=== PATIENT | male | born 1965 | race Caucasian/White ===

== ENCOUNTER 2017-11-17 14:56 | Inpatient (IN) | payer OTHER ==
[~2017-11-17] VITALS: Ht 172.7 cm; Wt 134.0 kg
[~2017-11-17 14:56] MED LIST: ALLO300T2 PO; ASPI81TA81 PO; ESCI10TA PO; FURO1TAB62 PO; HYDR10TA23 PO; LEVA500T PO; LOTR10CA2 PO
[2017-11-17 15:09] VITALS: BP 184/84; PULSE 83; RESP 15; TEMP 97.7; O2SAT 88
[2017-11-17] MEDS ORDERED: FUROSEMIDE 40 MG/4 ML VIAL IVP ONE (15:45)
--- NOTE | 2017-11-17 15:46 | PD ---
HPI Chief Complaint: Cold / Flu Symptoms Time Seen by Provider: 15:20 Travel History International Travel<30 days: No Contact w/Intl Traveler<30days: No Traveled to known affect area: No History of Present Illness HPI 52-year-old male presents emergency department complaining of shortness of breath, cough, swelling of the bilateral lower extremities that started 3 weeks ago. Patient states that he started having a sore throat developed a cough and began wheezing decided to go to his primary care physician. States that he is received 2 antibiotics and an inhaler from multiple occasions at the urgent care center without significant relief. Patient says shortness of breath increases with laying flat and walking. Patient states that addition his lower extremities have become more swollen than normal. Says he went to urgent care today who recommended he come to the emergency department for evaluation. Patient denies fevers or chills. Denies chest pain. Denies back pain or abdominal pain. Patient states compliance with medications which include Lasix , escitalopram, amlodipine/benazepril. Patient says he has 2-3 alcoholic drinks per day and has done so for years. Denies tobacco use. PFSH Past Medical History Autoimmune Disease: No Cancer: No Cardiovascular Problems: Yes High Cholesterol: No Endocrine: No Gout: Yes Genitourinary: No Hiatal Hernia: Yes (REPAIR 1974) Hypertension: Yes Immune Disorder: No Implanted Vascular Access Dvce: No Musculoskeletal: No Neurologic: No Respiratory: No Thyroid Disease: No Tetanus Vaccination: < 5 Years Past Surgical History Abdominal Surgery: Yes (hernia repair) Body Medical Devices: pacemaker Cardiac Surgery: Yes (pacemaker) Other Surgery: Yes (ankle repair) Social History Alcohol Use: Yes (daily) Tobacco Use: No Substance Use: No Allergies-Medications (Allergen,Severity, Reaction): Coded Allergies: No Known Allergies (Unverified Adverse Reaction, Unknown, 11/17/17) Reported Meds & Prescriptions Reported Meds & Active Scripts Active Lotrel (Amlodipine-Benazepril) 10-40 Mg Cap 1 Cap PO DAILY Reported Ventolin Hfa 18 GM Inh (Albuterol Sulfate) 90 Mcg/Act Aer 2 Puff INH Q4-6H PRN Lasix (Furosemide) 20 Mg Tab 20 Mg PO DAILY Escitalopram (Escitalopram Oxalate) 10 Mg Tab 10 Mg PO DAILY Allopurinol 300 Mg Tab 300 Mg PO DAILY Aspir-81 (Aspirin) 81 Mg Tabdr 1 Tab PO DAILY Review of Systems Except as stated in HPI: all other systems reviewed are Neg Physical Exam Narrative GENERAL: Well-developed, well-nourished in no apparent distress SKIN: Focused skin assessment warm/dry. No rashes or lesions HEAD: Atraumatic. Normocephalic. EYES: Pupils equal and round. No scleral icterus. No injection or drainage. ENT: No nasal bleeding or discharge. Mucous membranes pink and moist. NECK: Trachea midline. No JVD. No lymphadenopathy CARDIOVASCULAR: Regular rate and rhythm. No murmur appreciated. RESPIRATORY: No accessory muscle use. Left lobes with diffuse wheezing, right lobes rales versus rhonchi GASTROINTESTINAL: Abdomen soft, non-tender, nondistended. Protuberant MUSCULOSKELETAL: No obvious deformities. No clubbing. No cyanosis. +2 pitting edema edema bilateral lower extremities, Homans sign negative, no erythema noted NEUROLOGICAL: Awake and alert. No obvious cranial nerve deficits. Motor grossly within normal limits. Normal speech. PSYCHIATRIC: Appropriate mood and affect; insight and judgment normal. Data Data Last Documented VS Vital Signs Date Time Temp Pulse Resp B/P (MAP) Pulse Ox O2 Delivery O2 Flow Rate FiO2 11/17/17 16:00 Nasal Cannula 4.00 11/17/17 15:54 94 11/17/17 15:09 97.7 83 15 184/84 (117) Orders Orders Complete Blood Count With Diff (11/17/17 15:35) Comprehensive Metabolic Panel (11/17/17 15:35) B-Type Natriuretic Peptide (11/17/17 15:35) Act Partial Throm Time (Ptt) (11/17/17 15:35) Prothrombin Time / Inr (Pt) (11/17/17 15:35) Magnesium (Mg) (11/17/17 15:35) Ckmb (Isoenzyme) Profile (11/17/17 15:35) Troponin I (11/17/17 15:35) Urinalysis - C+S If Indicated (11/17/17 15:35) Iv Access Insert/Monitor (11/17/17 15:35) Electrocardiogram (11/17/17 15:35) Ecg Monitoring (11/17/17 15:35) Oximetry (11/17/17 15:35) Oxygen Administration (11/17/17 15:35) Chest, Pa & Lat (11/17/17 15:35) Furosemide Inj (Lasix Inj) (11/17/17 15:45) Albuterol-Ipratropium Neb (Duoneb Neb) (11/17/17 15:45) Admit Order (Ed Use Only) (11/17/17 17:23) Labs Laboratory Tests Test 11/17/17 16:00 11/17/17 16:10 White Blood Count 10.1 TH/MM3 Red Blood Count 3.14 MIL/MM3 Hemoglobin 12.0 GM/DL Hematocrit 35.0 % Mean Corpuscular Volume 111.7 FL Mean Corpuscular Hemoglobin 38.3 PG Mean Corpuscular Hemoglobin Concent 34.3 % Red Cell Distribution Width 15.4 % Platelet Count 151 TH/MM3 Mean Platelet Volume 7.9 FL Neutrophils (%) (Auto) 71.9 % Lymphocytes (%) (Auto) 19.4 % Monocytes (%) (Auto) 6.9 % Eosinophils (%) (Auto) 1.0 % Basophils (%) (Auto) 0.8 % Neutrophils # (Auto) 7.2 TH/MM3 Lymphocytes # (Auto) 2.0 TH/MM3 Monocytes # (Auto) 0.7 TH/MM3 Eosinophils # (Auto) 0.1 TH/MM3 Basophils # (Auto) 0.1 TH/MM3 CBC Comment DIFF FINAL Differential Comment Prothrombin Time 11.6 SEC Prothromb Time International Ratio 1.1 RATIO Activated Partial Thromboplast Time 25.7 SEC Blood Urea Nitrogen 11 MG/DL Creatinine 0.66 MG/DL Random Glucose 136 MG/DL Total Protein 7.2 GM/DL Albumin 3.4 GM/DL Calcium Level 8.4 MG/DL Magnesium Level 1.3 MG/DL Alkaline Phosphatase 159 U/L Aspartate Amino Transf (AST/SGOT) 68 U/L Alanine Aminotransferase (ALT/SGPT) 39 U/L Total Bilirubin 0.5 MG/DL Sodium Level 131 MEQ/L Potassium Level 4.3 MEQ/L Chloride Level 91 MEQ/L Carbon Dioxide Level 35.5 MEQ/L Anion Gap 5 MEQ/L Estimat Glomerular Filtration Rate 126 ML/MIN Total Creatine Kinase 91 U/L Troponin I LESS THAN 0.02 NG/ML B-Type Natriuretic Peptide 160 PG/ML Urine Color YELLOW Urine Turbidity CLEAR Urine pH 8.0 Urine Specific [place] 1.015 Urine Protein NEG mg/dL Urine Glucose (UA) NEG mg/dL Urine Ketones NEG mg/dL Urine Occult Blood NEG Urine Nitrite NEG Urine Bilirubin NEG Urine Urobilinogen LESS THAN 2.0 MG/DL Urine Leukocyte Esterase SMALL Urine RBC LESS THAN 1 /hpf Urine WBC LESS THAN 1 /hpf Urine Bacteria RARE /hpf Microscopic Urinalysis Comment CULT NOT INDICATED MDM Medical Decision Making Medical Screen Exam Complete: Yes Emergency Medical Condition: Yes Differential Diagnosis Congestive heart failure, pneumonia, upper respiratory infection, bronchitis Narrative Course 52-year-old male with a history of SSS s/p Pacemaker placement presents emergency department complaining of shortness of breath, cough, swelling of the bilateral lower extremities that started 3 weeks ago. Patient states that he started having a sore throat developed a cough and began wheezing decided to go to his primary care physician. States that he is received 2 antibiotics and an inhaler from multiple occasions at the urgent care center without significant relief. Patient says shortness of breath increases with laying flat and walking. Patient states that addition his lower extremities have become more swollen than normal. Says he went to urgent care today who recommended he come to the emergency department for evaluation. Patient denies fevers or chills. Denies chest pain. Denies back pain or abdominal pain. Patient states compliance with medications which include Lasix 20mg QD, escitalopram, amlodipine/benazepril, allopurinol. Patient says he has 2-3 alcoholic drinks per day and has done so for years. Denies tobacco use. Vital signs demonstrate a CO2 88% on room air, 96% 4LPM NC. Duo nebs 2 ordered however, patient will receive one after review of the chest x-ray. Minimal decrease in symptoms. Lasix 40 mg administered IV. CBC demonstrates chronic anemia, BUN/creatinine 11/0.66, calcium 8.4, magnesium 1.3, cardiac enzymes negative. BNP 160 (no previous for comparison). Urinalysis unconvincing of a urinary tract infection. Chest x-ray reveals increased density at the right lung base suspect for moderate elevation of the right hemidiaphragm, atelectasis, and possible effusion. Because of history and physical, lab findings, suspect that patient is in acute congestive heart failure. Patient apparently has no history of congestive heart heart failure. 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 According to EMR, his last cardiac cath was in August 2016 after an echocardiogram in July 2016. EF 55%. Mild LVH. Systolic pressure mild to moderately elevated at PA peak pressure 49 mmHg. His pacemaker was placed in August 2016. Patient will be admitted with congestive heart failure with associated hypoxia. Diagnosis Primary Impression: Congestive heart failure (CHF) Qualified Codes: I50.9 - Heart failure, unspecified Additional Impression: Hypoxia Admitting Information Admitting Physician Requests: Admit Condition: Stable Daily Zayas Nov 17, 2017 15:46
[2017-11-17] MEDS ORDERED: VENTAER INH (15:55)
[2017-11-17] MEDS: RESP: ALBUTEROL 2.5 MG/IPRATROPIUM 0.5 MG NEB (SCH) INH ×2 (16:05→16:10)
--- NOTE | 2017-11-17 16:15 | RADRPT ---
EXAM DATE/TIME: 11/17/2017 15:52 [facility] COMPARISON: CHEST SINGLE AP, August 29, 2016, 17:44. INDICATIONS : Short of breath MEDICAL HISTORY : Hypertension. SURGICAL HISTORY : Pacemaker. ENCOUNTER: Initial ACUITY: 1 day PAIN SCORE: 0/10 LOCATION: chest FINDINGS: A pacer device from a right subclavian transvenous approach is noted. There is moderate elevation of the right hemidiaphragm and basilar atelectasis is seen as well as a suspected effusion on the right. Left lung is clear. There degenerative changes of the spine. CONCLUSION: Increased density at the right lung base suspect for moderate elevation of the right hemidiaphragm, a telectasis and possible effusion. Joaquin Cintron MD on November 17, 2017 at 16:12 Board Certified Radiologist. This report was verified electronically.
[2017-11-17 16:16] LABS: AUTOMATED NEUTROPHIL # 7.2 TH/MM3 (1.8-7.7); BASOPHIL # 0.1 TH/MM3 (0-0.2); BASOPHIL % 0.8 % (0.0-2.0); EOSINOPHIL # 0.1 TH/MM3 (0-0.4); LYMPH % 19.4 % (9.0-44.0); MEAN CELL VOLUME 111.7 FL (80.0-100.0); MEAN CORPUSCULAR HEMOGLOBIN 38.3 PG (27.0-34.0); MEAN CORPUSCULAR HGB CONC 34.3 % (32.0-36.0); MEAN PLATELET VOLUME 7.9 FL (7.0-11.0); MONO % 6.9 % (0.0-8.0); MONOCYTE # 0.7 TH/MM3 (0-0.9); NEUT % 71.9 % (16.0-70.0); PLATELET COUNT 151 TH/MM3 (150-450); RED BLOOD COUNT 3.14 MIL/MM3 (4.50-5.90); RED CELL DISTRIBUTION WIDTH 15.4 % (11.6-17.2); WHITE BLOOD COUNT 10.1 TH/MM3 (4.0-11.0)
[2017-11-17 16:18] LABS: BACTERIA, URINE RARE /hpf; BILIRUBIN, URINE NEG (NEG); BLOOD, URINE NEG (NEG); GLUCOSE,URINE NEG (NEG); KETONE, URINE NEG (NEG); NITRITE,URINE NEG (NEG); URINE COLOR YELLOW (YELLW/STRAW); URINE LEUKOCYTE ESTERASE SMALL (NEG)
[2017-11-17 16:27] LABS: INTERNATIONAL NORMALIZED RATIO 1.1 RATIO; PROTHROMBIN TIME - PATIENT 11.6 SEC (9.8-11.6)
[2017-11-17 16:29] LABS: ALBUMIN 3.4 GM/DL (3.4-5.0); ALT (GPT) 39 U/L (12-78); AST (GOT) 68 U/L (15-37); BICARBONATE 35.5 MEQ/L (21.0-32.0); BLOOD UREA NITROGEN 11 MG/DL (7-18); CALCIUM 8.4 MG/DL (8.5-10.1); CHLORIDE 91 MEQ/L (98-107); CREATININE 0.66 MG/DL (0.60-1.30); GLOMERULAR FILTRATION RATE 126 ML/MIN (>89); GLUCOSE,RANDOM 136 MG/DL (74-106); MAGNESIUM 1.3 MG/DL (1.5-2.5); SODIUM (NA) 131 MEQ/L (136-145)
[2017-11-17 16:33] LABS: ALKALINE PHOSPHATASE 159 U/L (45-117); TOTAL BILIRUBIN ADULT 0.5 MG/DL (0.2-1.0); TOTAL PROTEIN 7.2 GM/DL (6.4-8.2); TROPONIN I LESS THAN 0.02 NG/ML (0.02-0.05)
[2017-11-17] MEDS ORDERED: NALOXONE HCL 0.4 MG/ML AMP IV PUSH PRN (17:30)
[2017-11-17] MEDS ORDERED: ONDANSETRON HCL 4 MG/2 ML VIAL IVP PRN ×2 (17:30→19:00)
[2017-11-17] MEDS ORDERED: SODIUM CHLORIDE 0.9% FLUSH 10 ML FLUSH IV FLUSH PRN ×2 (17:30→19:00)
[2017-11-17] MEDS ORDERED: SENNOSIDES 8.6 MG TAB PO PRN (17:30)
[2017-11-17] MEDS ORDERED: LACTULOSE SYRUP 20 GM/30 ML CUP PO PRN (17:30)
[2017-11-17] MEDS ORDERED: MAGNESIUM HYDROXIDE SUSP 30 ML CUP PO PRN (17:30)
[2017-11-17] MEDS ORDERED: ACETAMINOPHEN 325 MG TAB PO PRN (17:30)
[2017-11-17] MEDS ORDERED: BISACODYL 10 MG SUPP RECTAL PRN (17:30)
[2017-11-17 18:38] VITALS: BP 150/91; PULSE 67; RESP 16; O2SAT 97
[2017-11-17] MEDS: FUROSEMIDE 20 MG/2 ML VIAL IV PUSH SCH (18:38)
--- NOTE | 2017-11-17 18:59 | HHI.HP ---
[facility] Unknown Admission Diagnosis Acute CHF with hypoxia Diagnoses: (1) CHF (congestive heart failure) Diagnosis: Principal (2) Hypoxia Diagnosis: Principal (3) Bronchitis Diagnosis: Principal Travel History International Travel<30 Days: No Contact w/Intl Traveler <30 Da: No Traveled to Known Affected Are: No History of Present Illness This is a 52-year-old male with PMH of HTN, CHF (Echo 07/18/16 w/ EF 55%), Gout and Hyperlipidemia who was referred to the ER by Urgent Care secondary to cough , wheezing and SOB. States he's had non-productive cough, SOB and wheezing for approx 3wks. Was seen at Urgent Care at time of onset and given Z-Jose which he completed. Seen by PCP last week w/ ongoing symptoms and started on Doxycycline 100mg bid in addition to Albuterol MDI. Reports minimal improvement. Significant SOB w/ exertion, also notes worsening lower extremity edema. Follows w/ Dr. Quintanilla as outpatient, no recent changes to medications. On arrival, BP 184/84, HR 83, O2 sat 88% on RA, Afebrile. CBC unremarkable except for elevated neutrophil count. Troponin negative. BNP 160. INR 1.1. CXR with increased density right lung base likely elevation of diaphragm atelectasis and possible effusion. S/p Lasix and DuoNeb in ER. Review of Systems Except as stated in HPI: all other systems reviewed are Neg ROS: 14 point review of systems otherwise negative. Past Family Social History Past Medical History PMH: HTN, CHF (Echo 07/18/16 w/ EF 55%), Gout and Hyperlipidemia Past Surgical History PAST SURGICAL HISTORY: Hernia Repair, Pacemaker, Ankle Surgery Allergies: Coded Allergies: No Known Allergies (Unverified Allergy, Unknown, 11/17/17) Family History PAST FAMILY HISTORY: Reviewed. No h/o DM or CAD Social History PAST SOCIAL HISTORY: Drinks 2-3 beers daily. Negative for tobacco or drugs. Physical Exam Vital Signs Vital Signs Date Time Temp Pulse Resp B/P (MAP) Pulse Ox O2 Delivery O2 Flow Rate FiO2 11/17/17 18:38 67 16 150/91 (110) 97 Nasal Cannula 3.00 11/17/17 16:00 Nasal Cannula 4.00 11/17/17 15:54 94 Nasal Cannula 4.00 11/17/17 15:09 97.7 83 15 184/84 (117) 88 Physical Exam PE: GENERAL: Pleasant middle-aged white male in no acute distress. Some dyspnea with speech HEENT: PERRLA, EOMI. No scleral icterus or conjunctival pallor. No lid lag or facial droop. CARDIOVASCULAR: Regular rate and rhythm. No obvious murmurs to auscultation. No chest tenderness to palpation. RESPIRATORY: No obvious rhonchi. Occasional expiratory wheezing. Clear to auscultation. Breath sounds equal bilaterally. GASTROINTESTINAL: Abdomen soft, non-tender, nondistended. BS normal. MUSCULOSKELETAL: Extremities without clubbing, cyanosis. 2+ edema. No obvious deformities. NEUROLOGICAL: Awake, alert and oriented x4. No focal neurologic deficits. Moving both upper and lower extremities spontaneously. Laboratory Laboratory Tests Test 11/17/17 16:00 11/17/17 16:10 White Blood Count 10.1 Red Blood Count 3.14 Hemoglobin 12.0 Hematocrit 35.0 Mean Corpuscular Volume 111.7 Mean Corpuscular Hemoglobin 38.3 Mean Corpuscular Hemoglobin Concent 34.3 Red Cell Distribution Width 15.4 Platelet Count 151 Mean Platelet Volume 7.9 Neutrophils (%) (Auto) 71.9 Lymphocytes (%) (Auto) 19.4 Monocytes (%) (Auto) 6.9 Eosinophils (%) (Auto) 1.0 Basophils (%) (Auto) 0.8 Neutrophils # (Auto) 7.2 Lymphocytes # (Auto) 2.0 Monocytes # (Auto) 0.7 Eosinophils # (Auto) 0.1 Basophils # (Auto) 0.1 CBC Comment DIFF FINAL Differential Comment Prothrombin Time 11.6 Prothromb Time International Ratio 1.1 Activated Partial Thromboplast Time 25.7 Blood Urea Nitrogen 11 Creatinine 0.66 Random Glucose 136 Total Protein 7.2 Albumin 3.4 Calcium Level 8.4 Magnesium Level 1.3 Alkaline Phosphatase 159 Aspartate Amino Transf (AST/SGOT) 68 Alanine Aminotransferase (ALT/SGPT) 39 Total Bilirubin 0.5 Sodium Level 131 Potassium Level 4.3 Chloride Level 91 Carbon Dioxide Level 35.5 Anion Gap 5 Estimat Glomerular Filtration Rate 126 Total Creatine Kinase 91 Troponin I LESS THAN 0.02 B-Type Natriuretic Peptide 160 Urine Color YELLOW Urine Turbidity CLEAR Urine pH 8.0 Urine Specific [place] 1.015 Urine Protein NEG Urine Glucose (UA) NEG Urine Ketones NEG Urine Occult Blood NEG Urine Nitrite NEG Urine Bilirubin NEG Urine Urobilinogen LESS THAN 2.0 Urine Leukocyte Esterase SMALL Urine RBC LESS THAN 1 Urine WBC LESS THAN 1 Urine Bacteria RARE Microscopic Urinalysis Comment CULT NOT INDICATED Result Diagram: 11/17/17 1600 11/17/17 1600 Caprinroberta VTE Risk Assessment Caprini VTE Risk Assessment: No/Low Risk (score <= 1) Caprini Risk Assessment Model Point Value = 1 Point Value = 2 Point Value = 3 Point Value = 5 Age 41-60 Minor surgery BMI > 25 kg/m2 Swollen legs Varicose veins or History of unexplained or recurrent spontaneous Oral contraceptives or hormone replacement Sepsis (< 1 month) Serious lung disease, including pneumonia (< 1 month) Abnormal pulmonary function Acute myocardial infarction Congestive heart failure (< 1 month) History of inflammatory bowel disease Medical patient at bed rest Age 61-74 Arthroscopic surgery Major open surgery (> 45 min) Laparoscopic surgery (> 45 min) Malignancy Confined to bed (> 72 hours) Immobilizing plaster cast Central venous access Age >= 75 History of VTE Family history of VTE Factor V Leiden Prothrombin [id number] Lupus anticoagulant Anticardiolipin antibodies Elevated serum homocysteine Heparin-induced thrombocytopenia Other congenital or acquired thrombophilia Stroke (< 1 month) Elective arthroplasty Hip, pelvis, or leg fracture Acute spinal cord injury (< 1 month) Prophylaxis Regimen Total Risk Factor Score Risk Level Prophylaxis Regimen 0-1 Low Early ambulation 2 Moderate Order ONE of the following: *Sequential Compression Device (SCD) *Heparin 5000 units SQ BID 3-4 Higher Order ONE of the following medications: *Heparin 5000 units SQ TID *Enoxaparin/Lovenox 40 mg SQ daily (WT < 150 kg, CrCl > 30 mL/min) *Enoxaparin/Lovenox 30 mg SQ daily (WT < 150 kg, CrCl > 10-29 mL/min) *Enoxaparin/Lovenox 30 mg SQ BID (WT < 150 kg, CrCl > 30 mL/min) AND/OR *Sequential Compression Device (SCD) 5 or more Highest Order ONE of the following medications: *Heparin 5000 units SQ TID (Preferred with Epidurals) *Enoxaparin/Lovenox 40 mg SQ daily (WT < 150 kg, CrCl > 30 mL/min) *Enoxaparin/Lovenox 30 mg SQ daily (WT < 150 kg, CrCl > 10-29 mL/min) *Enoxaparin/Lovenox 30 mg SQ BID (WT < 150 kg, CrCl > 30 mL/min) AND *Sequential Compression Device (SCD) Assessment and Plan Problem List: (1) CHF (congestive heart failure) ICD Code: I50.9 - Heart failure, unspecified (2) Hypoxia ICD Code: R09.02 - Hypoxemia (3) Bronchitis ICD Code: J40 - Bronchitis, not specified as acute or chronic Assessment and Plan A/P: 1. CHF: Acute on Chronic. Diastolic. Echo 07/18/16 w/ EF 55%, BNP 160, CXR w / pleural effusion, images reviewed by me, +lower extremity edema. S/p Lasix in ER. Continue w/ Lasix 20mg IV bid, monitor I/O, fluid restriction. Follows w/ Dr. Quintanilla as outpatient, will consult if needed for further recommendations. 2. Hypoxia: O2 sat 88% on RA upon arrival, currently 97% on 3L NC, monitor O2. 3. Bronchitis: +SOB, cough, wheezing, s/p Z-Jose and Doxycycline as outpatient. Afebrile. Solu-Medrol, Symbicort, DuoNeb prn, Mucinex. 4. DVT Prophylaxis: SCD/Teds. 5. Social work for d/c planning as needed. 6. Case discussed w/ ER physician at length, labs/records/imaging reviewed by me. Physician Certification 2 Midnight Certification Type: Admission for Inpatient Services Order for Inpatient Services The services are ordered in accordance with Medicare regulations or non- Medicare payer requirements, as applicable. In the case of services not specified as inpatient-only, they are appropriately provided as inpatient services in accordance with the 2-midnight benchmark. Estimated LOS (days): 2 days is the estimated time the patient will need to remain in the hospital, assuming treatment plan goals are met and no additional complications. Post-Hospital Plan: Not yet determined Diann Lord MD Nov 17, 2017 18:59
[2017-11-17] MEDS ORDERED: ACETAMINOPHEN/HYDROcodone 325 MG/5 MG TAB PO PRN (19:00)
[2017-11-17] MEDS ORDERED: RESP: ALBUTEROL 2.5 MG/IPRATROPIUM 0.5 MG NEB (PRN) NEB (19:00)
[2017-11-17] MEDS ORDERED: MORPHINE SULFATE 2 MG/ML INJ IV PUSH PRN (19:00)
[2017-11-17 20:00] VITALS: BP 187/83; PULSE 68; RESP 22; TEMP 98.1; O2SAT 94
[2017-11-17] MEDS ORDERED: LEVOFLOXACIN 750 MG PREMIX INJ 150 ML IV SCH (20:00)
[2017-11-17] MEDS ORDERED: SODIUM CHLORIDE 0.9% FLUSH 10 ML FLUSH IV FLUSH SCH (21:00)
[2017-11-17 21:19] VITALS: PULSE 77
[2017-11-17] MEDS: guaiFENesin E.R. 600 MG TAB PO SCH (22:35)
[2017-11-17] MEDS: DOCUSATE SODIUM 50 MG/SENNA 8.6 MG TAB PO SCH (22:36)
[2017-11-17] MEDS: SODIUM CHLORIDE 0.9% FLUSH 10 ML FLUSH IV FLUSH SCH (22:37)
[2017-11-18] VITALS (11 sets, daily range): BP systolic 128–190; BP diastolic 58–92; PULSE 61–79; RESP 20–22; TEMP 97.6–98.7; O2SAT 93–96
[2017-11-18] MEDS: methylPREDNISolone SOD SUCC 40 MG/1 ML VIAL IV PUSH SCH ×4 (00:48→18:02)
[2017-11-18 06:06] LABS: AUTOMATED NEUTROPHIL # 5.1 TH/MM3 (1.8-7.7); BASOPHIL % 0.5 % (0.0-2.0); EOSINOPHIL % 0.2 % (0.0-4.0); HEMATOCRIT 35.1 % (39.0-51.0); LYMPH % 9.8 % (9.0-44.0); LYMPHOCYTE # 0.6 TH/MM3 (1.0-4.8); MEAN CELL VOLUME 111.3 FL (80.0-100.0); MEAN CORPUSCULAR HEMOGLOBIN 38.2 PG (27.0-34.0); MEAN CORPUSCULAR HGB CONC 34.3 % (32.0-36.0); MEAN PLATELET VOLUME 7.7 FL (7.0-11.0); MONO % 1.6 % (0.0-8.0); MONOCYTE # 0.1 TH/MM3 (0-0.9); NEUT % 87.9 % (16.0-70.0); PLATELET COUNT 108 TH/MM3 (150-450); RED BLOOD COUNT 3.16 MIL/MM3 (4.50-5.90); RED CELL DISTRIBUTION WIDTH 15.3 % (11.6-17.2); WHITE BLOOD COUNT 5.8 TH/MM3 (4.0-11.0)
[2017-11-18 06:27] LABS: ALBUMIN 3.2 GM/DL (3.4-5.0); AST (GOT) 45 U/L (15-37); BICARBONATE 32.6 MEQ/L (21.0-32.0); BLOOD UREA NITROGEN 7 MG/DL (7-18); CALCIUM 8.4 MG/DL (8.5-10.1); CHLORIDE 90 MEQ/L (98-107); CREATININE 0.52 MG/DL (0.60-1.30); GLOMERULAR FILTRATION RATE 166 ML/MIN (>89); GLUCOSE,RANDOM 171 MG/DL (74-106); SODIUM (NA) 132 MEQ/L (136-145)
[2017-11-18 06:29] LABS: ALT (GPT) 34 U/L (12-78)
[2017-11-18 06:32] LABS: ALKALINE PHOSPHATASE 151 U/L (45-117); TOTAL BILIRUBIN ADULT 0.8 MG/DL (0.2-1.0); TOTAL PROTEIN 6.8 GM/DL (6.4-8.2); TROPONIN I LESS THAN 0.02 NG/ML (0.02-0.05)
[2017-11-18] MEDS: SODIUM CHLORIDE 0.9% FLUSH 10 ML FLUSH IV FLUSH SCH ×2 (09:11→21:27)
[2017-11-18] MEDS: DOCUSATE SODIUM 50 MG/SENNA 8.6 MG TAB PO SCH ×2 (09:11→21:00)
[2017-11-18] MEDS: ALLOPURINOL 300 MG TAB PO SCH (09:11)
[2017-11-18] MEDS: ASPIRIN EC 81 MG TABEC PO SCH (09:12)
[2017-11-18] MEDS: FUROSEMIDE 20 MG/2 ML VIAL IV PUSH SCH (09:12)
[2017-11-18] MEDS: guaiFENesin E.R. 600 MG TAB PO SCH ×2 (09:12→21:27)
[2017-11-18] MEDS: ESCITALOPRAM OXALATE 10 MG TAB PO SCH (09:12)
[2017-11-18] MEDS: NIFEdipine 60 MG SUSTAINED RELEASE TAB PO SCH (09:24)
[2017-11-18] MEDS ORDERED: FUROSEMIDE 20 MG/2 ML VIAL IV PUSH ONE (11:30)
[2017-11-18] MEDS ORDERED: ENOXAPARIN SODIUM 40 MG/0.4 ML SYRINGE SQ SCH (12:00)
--- NOTE | 2017-11-18 13:28 | EKG ---
Date Performed: 11/17/2017 Time Performed: 15:22:36 PTAGE: 52 years EKG: Sinus rhythm INTRAVENTRICULAR CONDUCTION DELAY ABNORMAL ECG INTERPRETATION BASED ON A DEFAULT AGE OF 40 YEARS PREVIOUS TRACING 08/29/16 Since the prior tracing, there has been no significant change DOCTOR: Jaquan Pearl Interpretating Date/Time 11/18/2017 13:26:15
--- NOTE | 2017-11-18 13:41 | RADRPT ---
EXAM DATE/TIME: 11/18/2017 13:13 [facility] COMPARISON: No previous studies available for comparison. INDICATIONS : Pleural effusions. Shortness of breath. RADIATION DOSE: 9.59 CTDIvol (mGy) MEDICAL HISTORY : Cardiovascular disease. Hypertension. SURGICAL HISTORY : Pacemaker. ENCOUNTER: Initial ACUITY: 1 day PAIN SCALE: 0/10 LOCATION: chest TECHNIQUE: Volumetric scanning of the chest was performed. Using automated exposure control and adjustment of t he mA and/or kV according to patient size, radiation dose was kept as low as reasonably achievable to obtain optimal diagnostic quality images. DICOM format image data is available electronically for r eview and comparison. Follow-up recommendations for detected pulmonary nodules are based at a minimum on nodule size and pa tient risk factors according to Fleischner Society Guidelines. FINDINGS: LUNGS: The left lung is clear. There is a small right pleural effusion with compressive atelectasis in the right base.. Pacemaker implanted on the left. MEDIASTINUM: The heart and great vessels demonstrate no acute abnormality. There is no mediastinal or hilar lymph adenopathy. There is no axillary adenopathy. MUSCULOSKELETAL: Review of bone windows reveals mild degenerative changes thoracic spine. MISCELLANEOUS: The visualized upper abdominal organs demonstrate no acute abnormality. CONCLUSION: Small to moderate right pleural effusion with t compressive atelectasis in the right base. Sam Villar MD FACR on November 18, 2017 at 13:32 Board Certified Radiologist. This report was verified electronically.
--- NOTE | 2017-11-18 14:18 | HHI.PR ---
Subjective Remarks Follow-up for acute respiratory failure, right-sided pleural effusion. Patient is currently resting in bed. Currently on 3-4 L of oxygen via nasal cannula. No fever or chills. Objective Vitals Vital Signs Date Time Temp Pulse Resp B/P (MAP) Pulse Ox O2 Delivery O2 Flow Rate FiO2 11/18/17 12:06 98.5 69 21 168/92 (117) 93 11/18/17 09:30 95 Nasal Cannula 4.00 11/18/17 08:07 71 11/18/17 08:06 98.7 70 20 170/86 (114) 95 11/18/17 04:13 94 Nasal Cannula 4.00 11/18/17 04:10 178/86 (116) 11/18/17 04:00 98.6 61 22 190/79 (116) 96 11/18/17 04:00 Nasal Cannula 4.00 Humidified 11/18/17 04:00 67 11/18/17 00:00 68 11/18/17 00:00 98.2 66 20 180/86 (117) 96 11/18/17 00:00 96 Nasal Cannula 4.00 11/17/17 21:19 77 11/17/17 20:00 Nasal Cannula 4.00 11/17/17 20:00 98.1 68 22 187/83 (117) 94 11/17/17 18:38 67 16 150/91 (110) 97 Nasal Cannula 3.00 11/17/17 16:00 Nasal Cannula 4.00 11/17/17 15:54 94 Nasal Cannula 4.00 11/17/17 15:09 97.7 83 15 184/84 (117) 88 I/O 11/17/17 11/17/17 11/17/17 11/18/17 11/18/17 11/18/17 06:59 14:59 22:59 06:59 14:59 22:59 Intake Total 360 ml Output Total 1500 ml 1850 ml Balance -1500 ml -1490 ml Intake Oral 360 ml Output Urine Total 1500 ml 1850 ml # Voids 2 Result Diagram: 11/18/17 0545 11/18/17 0545 Imaging Last Impressions Chest CT 11/18/17 0000 Signed Impressions: Service Date/Time: Saturday, November 18, 2017 13:13 - CONCLUSION: Small to moderate right pleural effusion with t compressive atelectasis in the right base. Sam Villar MD FACR Chest X-Ray 11/17/17 1535 Signed Impressions: Service Date/Time: Friday, November 17, 2017 15:52 - CONCLUSION: Increased density at the right lung base suspect for moderate elevation of the right hemidiaphragm, atelectasis and possible effusion. Joaquin Cintron MD Objective Remarks GENERAL: Alert, oriented 3, NAD. SKIN: Warm and dry. HEAD: Normocephalic. EYES: No scleral icterus. No injection or drainage. NECK: Supple, trachea midline. No JVD or lymphadenopathy. CARDIOVASCULAR: Regular rate and rhythm without murmurs, gallops, or rubs. RESPIRATORY: Moderate air entry. Diffuse wheezing appreciated. Diminished breath sound on the right side. No accessory muscle use. GASTROINTESTINAL: Abdomen soft, non-tender, nondistended. MUSCULOSKELETAL: No cyanosis, or edema. BACK: Nontender without obvious deformity. No CVA tenderness. Procedures None A/P Problem List: (1) Acute respiratory failure with hypoxia ICD Code: J96.01 - Acute respiratory failure with hypoxia (2) Pleural effusion, right ICD Code: J90 - Pleural effusion, not elsewhere classified (3) CHF (congestive heart failure) ICD Code: I50.9 - Heart failure, unspecified (4) Bronchitis ICD Code: J40 - Bronchitis, not specified as acute or chronic Assessment and Plan This is a 52-year-old male with PMH of HTN, CHF (Echo 07/18/16 w/ EF 55%), Gout and Hyperlipidemia who was referred to the ER by Urgent Care secondary to cough , wheezing and SOB. He has had no symptoms improvement on 2 courses of antibiotics including azithromycin and doxycycline. On arrival, BP 184/84, HR 83 , O2 sat 88% on RA, Afebrile. CBC unremarkable except for elevated neutrophil count. Troponin negative. BNP 160. INR 1.1. CXR with increased density right lung base likely elevation of diaphragm atelectasis and possible effusion. -Acute respiratory failure with hypoxia -Right-sided pleural effusion -Possible bronchitis -Failed outpatient treatment with azithromycin and doxycycline. -We will empirically cover patient with Levaquin 750 mg p.o. daily -Continue DuoNeb, supplemental oxygen, Symbicort. Continue Solu-Medrol 40 mg every 6 hours. -Obtained CT chest which shows significant right-sided pleural effusion with compressive atelectasis. -We will obtain ultrasound-guided thoracentesis for diagnostic and therapeutic purpose. -Hypertension -Probable diastolic acute CHF exacerbation -Continue nifedipine 60 mg daily. -Continue Lasix 40 mg twice daily. -We will obtain a limited 2D echo Full code. Lovenox. Cinthya Payton DO Nov 18, 2017 14:18
--- NOTE | 2017-11-18 16:49 | ECHRPT ---
Indication: EF assessment of CHF CONCLUSIONS Upper normal left ventricular size. Wall thickness is measured at the upper limits of normal. The left ventricular systolic function is normal with an estimated ejection fraction in the range of 60-65%. No definite wall motion abnormalities. [id number] mitral valve regurgitation. There is trace tricuspid valve regurgitation. BP: 170 / 86 HR: 71 Rhythm: Sinus MEASUREMENTS (Male / Female) Normal Values Technical Quality:Fair 2D ECHO LV Diastolic Diameter PLAX 6.7 cm 4.2 - 5.9 / 3.9 - 5.3 cm LV Systolic Diameter PLAX 4.5 cm IVS Diastolic Thickness 1.3 cm 0.6 - 1.0 / 0.6 - 0.9 cm LVPW Diastolic Thickness 1.3 cm 0.6 - 1.0 / 0.6 - 0.9 cm LV Relative Wall Thickness 0.4 RV Internal Dim ED PLAX 3.6 cm LVOT Diameter 2.0 cm Aortic Root Diameter 3.1 cm LA Systolic Diameter LX 4.1 cm 3.0 - 4.0 / 2.7 - 3.8 cm DOPPLER AV Peak Velocity 219.0 cm/s AV Peak Gradient 19.2 mmHg AV Mean Gradient 9.0 mmHg AV Velocity Time Integral 40.6 cm LVOT Peak Velocity 171.0 cm/s LVOT Peak Gradient 11.7 mmHg LVOT Velocity Time Integral 30.0 cm AV Area Cont Eq vti 2.3 cm AV Area Cont Eq pk 2.5 cm Mitral E Point Velocity 119.0 cm/s Mitral A Point Velocity 115.0 cm/s Mitral E to A Ratio 1.0 LV E' Lateral Velocity 9.8 cm/s Mitral E to LV E' Lateral Ratio 12.1 LV E' Septal Velocity 7.7 cm/s Mitral E to LV E' Septal Ratio 15.5 TR Peak Velocity 286.0 cm/s TR Peak Gradient 33.0 mmHg Right Atrial Pressure 10.0 mmHg Pulmonary Artery Systolic Pressu 42.7 mmHg Right Ventricular Systolic Press 42.7 mmHg PV Peak Velocity 93.1 cm/s PV Peak Gradient 3.5 mmHg FINDINGS LEFT VENTRICLE Upper normal left ventricular size. Wall thickness is measured at the upper limits of normal. The left ventricular systolic function is normal with an estimated ejection fraction in the range of 60-65%. No definite wall motion abnormalities. RIGHT VENTRICLE Normal right ventricular size and systolic function. LEFT ATRIUM The left atrial size is normal. RIGHT ATRIUM The right atrial size is upper normal. ATRIAL SEPTUM The interatrial septum not well visualized. AORTA The aortic root and proximal ascending aorta are normal in size on limited imaging. MITRAL VALVE Stlpt-[id number] mitral valve regurgitation. AORTIC VALVE Trileaflet aortic valve. No aortic valve stenosis or regurgitation. TRICUSPID VALVE There is trace tricuspid valve regurgitation. PULMONARY VALVE No pulmonary valve regurgitation or stenosis. VESSELS The inferior vena cava is normal in size. PERICARDIUM No pericardial effusion. Landon Quintanilla MD (Electronically Signed) Final Date:18 November 2017 16:47
[2017-11-18] MEDS: LEVOFLOXACIN 750 MG TAB PO SCH (17:57)
[2017-11-18] MEDS: BUDESONIDE-FORMOTEROL 160/4.5 MCG INHALER INH SCH ×2 (17:58→21:27)
[2017-11-18] MEDS: FUROSEMIDE 40 MG/4 ML VIAL IV PUSH SCH (18:02)
[2017-11-18] MEDS: RESP: ALBUTEROL 2.5 MG/IPRATROPIUM 0.5 MG NEB (SCH) NEB (20:39)
[2017-11-19] VITALS (10 sets, daily range): BP systolic 113–171; BP diastolic 58–89; PULSE 69–88; RESP 18–22; TEMP 97.9–98.8; O2SAT 90–98
[2017-11-19] MEDS: methylPREDNISolone SOD SUCC 40 MG/1 ML VIAL IV PUSH SCH ×4 (01:12→17:17)
[2017-11-19] MEDS ORDERED: diphenhydrAMINE HCL 25 MG CAP PO ONE (01:30)
[2017-11-19] MEDS: SODIUM CHLORIDE 0.9% FLUSH 10 ML FLUSH IV FLUSH SCH ×2 (07:45→21:09)
[2017-11-19] MEDS: ESCITALOPRAM OXALATE 10 MG TAB PO SCH (08:07)
[2017-11-19] MEDS: DOCUSATE SODIUM 50 MG/SENNA 8.6 MG TAB PO SCH ×2 (08:07→21:00)
[2017-11-19] MEDS: guaiFENesin E.R. 600 MG TAB PO SCH ×2 (08:07→21:08)
[2017-11-19] MEDS: ASPIRIN EC 81 MG TABEC PO SCH (08:07)
[2017-11-19] MEDS: ALLOPURINOL 300 MG TAB PO SCH (08:07)
[2017-11-19] MEDS: NIFEdipine 60 MG SUSTAINED RELEASE TAB PO SCH (08:07)
[2017-11-19] MEDS: RESP: ALBUTEROL 2.5 MG/IPRATROPIUM 0.5 MG NEB (SCH) NEB ×3 (08:07→19:08)
[2017-11-19] MEDS: FUROSEMIDE 40 MG/4 ML VIAL IV PUSH SCH ×2 (08:07→17:16)
[2017-11-19] MEDS: BUDESONIDE-FORMOTEROL 160/4.5 MCG INHALER INH SCH ×2 (08:08→21:07)
[2017-11-19] MEDS ORDERED: LIDOCAINE HCL 1% 20 ML VIAL ONE (09:19)
--- NOTE | 2017-11-19 09:48 | RADRPT ---
EXAM DATE/TIME: 11/19/2017 09:21 [facility] COMPARISON: No previous studies available for comparison. INDICATIONS : Post right thoracentesis. MEDICAL HISTORY : Hypertension. Congestive heart failure. Hiatal hernia. Hypertension. Gout. Sleep apnea. Irregular heart beat. Arthritis. SURGICAL HISTORY : Pacemaker. Hernia repair. Ankle surgery. ENCOUNTER: Subsequent ACUITY: 1 day PAIN SCORE: 4/10 LOCATION: Right chest FINDINGS: 2 portable frontal views of the chest show the lungs to be hypoinflated bilaterally. Bibasilar atelec tasis. No infiltrate or effusion. Heart is moderately large. Limited evaluation of the pulmonary vasc ulature due to bronchovascular crowding secondary to the degree of inspiration. A pacing device overl ies the right chest. No pneumothorax observed. CONCLUSION: No pneumothorax following thoracentesis. Attila Herman Jr., MD on November 19, 2017 at 9:45 Board Certified Radiologist. This report was verified electronically.
--- NOTE | 2017-11-19 10:25 | RADRPT ---
EXAM DATE/TIME: 11/19/2017 07:56 [facility] COMPARISON: No previous studies available for comparison. INDICATIONS : Right pleural effusion. MEDICAL HISTORY : Hypertension. Hernia, hiatal. SURGICAL HISTORY : Pacemaker. Hiatal hernia repair. Left ankle repair. ENCOUNTER: Subsequent ACUITY: 2 days PAIN SCORE: 2/10 LOCATION: Right chest FLUID: Total volume of 1500 cc of Red fluid was removed. Fluid was sent to lab for ordered studies. TECHNIQUE: 1. Ultrasound guidance for thoracentesis. 2. Thoracentesis. The risks, benefits, and alternatives to ultrasound guided thoracentesis were explained to the patien t in lay simple terms, including the risk of bleeding and infection. Written and verbal informed con sent was obtained. Appropriate area for thoracentesis was marked under ultrasound guidance with the patient in the uprig ht position. Overlying skin was prepped and draped in the usual sterile fashion and with local anest hetic, a dermatotomy was made with an 11 blade scalpel. A 6 Malay thoracentesis catheter was placed in the pleural space and fluid was removed. Catheter was then removed and a sterile dressing applie d. There were no immediate complications. The patient tolerated the procedure well and the left the ultrasound suite in stable condition. Chest radiograph is to be obtained. CONCLUSION: Uncomplicated ultrasound guided thoracentesis. Dandy Perry MD on November 19, 2017 at 10:23 Board Certified Radiologist. This report was verified electronically.
[2017-11-19 10:53] LABS: TOTAL PROTEIN,PLEURAL FLUID 4.1 GM/DL
[2017-11-19 11:03] LABS: PLEURAL FLUID HISTIOCYTES 2 %; PLEURAL FLUID LYMPHS 77 %; PLEURAL FLUID MESOTHELIAL 3 %; PLEURAL FLUID MONOS 1 %; PLEURAL FLUID POLYS (SEGS) 17 %; PLEURAL FLUID RBC 1006387 /MM3 (0-0); PLEURAL FLUID WBC 512 /MM3 (0-10)
--- NOTE | 2017-11-19 15:05 | HHI.PR ---
Subjective Remarks Follow up pleural effusion, respiratory failure. The patient had thoracentesis today. Denies chest pain, dyspnea. No complaints at this time. Objective Vitals Vital Signs Date Time Temp Pulse Resp B/P (MAP) Pulse Ox O2 Delivery O2 Flow Rate FiO2 11/19/17 12:00 98.2 85 22 156/72 (100) 91 11/19/17 10:00 78 20 158/89 (112) 11/19/17 09:40 98.7 84 20 141/79 (99) 11/19/17 08:05 98 Nasal Cannula 2.00 11/19/17 08:00 97.9 75 22 171/77 (108) 95 11/19/17 03:42 98.8 69 18 129/60 (83) 93 11/19/17 00:00 98.1 77 20 154/68 (96) 95 11/18/17 20:41 93 Nasal Cannula 2.00 11/18/17 20:00 Nasal Cannula 2.00 11/18/17 20:00 97.6 75 20 128/58 (81) 94 11/18/17 16:06 98.0 79 20 169/85 (113) 94 I/O 11/18/17 11/18/17 11/18/17 11/19/17 11/19/17 11/19/17 07:00 15:00 23:00 07:00 15:00 23:00 Intake Total 360 ml 600 ml Output Total 1850 ml 1400 ml 500 ml Balance -1490 ml -800 ml -500 ml Intake Oral 360 ml 600 ml Output Urine Total 1850 ml 1400 ml 500 ml # Bowel Movements 0 Result Diagram: 11/18/17 0545 11/18/17 0545 Imaging Last Impressions Thoracentesis Ultrasound 11/19/17 0000 Signed Impressions: Service Date/Time: Sunday, November 19, 2017 07:56 - CONCLUSION: Uncomplicated ultrasound guided thoracentesis. Dandy Perry MD Chest X-Ray 11/19/17 0000 Signed Impressions: Service Date/Time: Sunday, November 19, 2017 09:21 - CONCLUSION: No pneumothorax following thoracentesis. Attila Herman Jr., MD Chest CT 11/18/17 0000 Signed Impressions: Service Date/Time: Saturday, November 18, 2017 13:13 - CONCLUSION: Small to moderate right pleural effusion with t compressive atelectasis in the right base. Sam Villar MD FACR Objective Remarks General: Obese male in no acute distress. Heart: Regular rate and rhythm. No murmur. Lungs: Decreased breath sounds on the right base . Breathing is nonlabored. Abdomen: Soft, nontender, nondistended. Extremities: No lower extremity edema. Psych: Alert and oriented. Procedures 11/19/17 thoracentesis Urinary Catheter: No Vascular Central Line Catheter: No A/P Problem List: (1) Acute respiratory failure with hypoxia ICD Code: J96.01 - Acute respiratory failure with hypoxia (2) Pleural effusion, right ICD Code: J90 - Pleural effusion, not elsewhere classified (3) CHF (congestive heart failure) ICD Code: I50.9 - Heart failure, unspecified (4) Bronchitis ICD Code: J40 - Bronchitis, not specified as acute or chronic Assessment and Plan 1. Acute respiratory failure with hypoxia, right-sided pleural effusion: Continue DuoNeb, supplemental oxygen as needed, Symbicort, steroids. Chest CT showed right-sided pleural effusion with compressive atelectasis. Incentive spirometry. Status post thoracentesis with removal of 1500 cc of red fluid. Consult pulmonology. Cultures and cytology are pending. 2. Hypertension: Continue nifedipine, Lasix. 3. Acute diastolic CHF: 2D echocardiogram noted. Continue Lasix. 4. DVT prophylaxis: Lovenox. Thanh Leblanc MD Nov 19, 2017 15:05
[2017-11-19] MEDS: LEVOFLOXACIN 750 MG TAB PO SCH (16:22)
[2017-11-20] VITALS (8 sets, daily range): BP systolic 129–174; BP diastolic 67–84; PULSE 70–93; RESP 20–24; TEMP 97.8–98.7; O2SAT 91–95
[2017-11-20] MEDS: methylPREDNISolone SOD SUCC 40 MG/1 ML VIAL IV PUSH SCH ×3 (01:11→11:47)
[2017-11-20 06:36] LABS: AUTOMATED NEUTROPHIL # 8.7 TH/MM3 (1.8-7.7); HEMATOCRIT 35.3 % (39.0-51.0); HEMOGLOBIN 12.3 GM/DL (13.0-17.0); LYMPH % 6.2 % (9.0-44.0); LYMPHOCYTE # 0.6 TH/MM3 (1.0-4.8); MEAN CELL VOLUME 110.5 FL (80.0-100.0); MEAN CORPUSCULAR HEMOGLOBIN 38.4 PG (27.0-34.0); MEAN CORPUSCULAR HGB CONC 34.8 % (32.0-36.0); MEAN PLATELET VOLUME 7.6 FL (7.0-11.0); MONOCYTE # 0.4 TH/MM3 (0-0.9); NEUT % 89.8 % (16.0-70.0); PLATELET COUNT 119 TH/MM3 (150-450); RED CELL DISTRIBUTION WIDTH 15.1 % (11.6-17.2); WHITE BLOOD COUNT 9.7 TH/MM3 (4.0-11.0)
[2017-11-20 07:06] LABS: BICARBONATE 32.8 MEQ/L (21.0-32.0); CREATININE 0.73 MG/DL (0.60-1.30)
[2017-11-20] MEDS: SODIUM CHLORIDE 0.9% FLUSH 10 ML FLUSH IV FLUSH SCH ×2 (07:36→22:08)
[2017-11-20] MEDS: guaiFENesin E.R. 600 MG TAB PO SCH ×2 (07:48→22:06)
[2017-11-20] MEDS: ESCITALOPRAM OXALATE 10 MG TAB PO SCH (07:48)
[2017-11-20] MEDS: NIFEdipine 60 MG SUSTAINED RELEASE TAB PO SCH (07:48)
[2017-11-20] MEDS: ASPIRIN EC 81 MG TABEC PO SCH (07:48)
[2017-11-20] MEDS: ALLOPURINOL 300 MG TAB PO SCH (07:48)
[2017-11-20] MEDS: DOCUSATE SODIUM 50 MG/SENNA 8.6 MG TAB PO SCH ×2 (07:48→21:00)
[2017-11-20] MEDS: FUROSEMIDE 40 MG/4 ML VIAL IV PUSH SCH (07:49)
[2017-11-20] MEDS: BUDESONIDE-FORMOTEROL 160/4.5 MCG INHALER INH SCH ×2 (07:52→22:07)
[2017-11-20] MEDS: RESP: ALBUTEROL 2.5 MG/IPRATROPIUM 0.5 MG NEB (SCH) NEB ×3 (08:18→20:43)
--- NOTE | 2017-11-20 13:44 | HHI.PR ---
Subjective Remarks Follow up pleural effusion. Patient states that he feels much better today. He wants to go home. Has not been seen by pulmonology yet. He believes that he developed hemothorax when he fell recently and landed on his back. Objective Vitals Vital Signs Date Time Temp Pulse Resp B/P (MAP) Pulse Ox O2 Delivery O2 Flow Rate FiO2 11/20/17 12:00 97.8 77 24 156/70 (98) 93 11/20/17 08:19 95 11/20/17 08:00 98.5 93 24 129/84 (99) 93 11/20/17 04:00 98.1 70 20 167/80 (109) 92 11/20/17 00:00 98.7 75 22 154/74 (100) 93 11/19/17 20:00 Room Air 11/19/17 20:00 98.1 88 20 113/58 (76) 93 11/19/17 19:08 90 21 11/19/17 16:00 98.2 83 22 160/75 (103) 92 I/O 11/19/17 11/19/17 11/19/17 11/20/17 11/20/17 11/20/17 07:00 15:00 23:00 07:00 15:00 23:00 Intake Total 720 ml 480 ml Output Total 500 ml 1150 ml 600 ml Balance -500 ml -430 ml -120 ml Intake Oral 720 ml 480 ml Output Urine Total 500 ml 1150 ml 600 ml # Voids 3 # Bowel Movements 0 Result Diagram: 11/20/17 0527 11/20/17 0527 Imaging Last Impressions Thoracentesis Ultrasound 11/19/17 0000 Signed Impressions: Service Date/Time: Sunday, November 19, 2017 07:56 - CONCLUSION: Uncomplicated ultrasound guided thoracentesis. Dandy Perry MD Chest X-Ray 11/19/17 0000 Signed Impressions: Service Date/Time: Sunday, November 19, 2017 09:21 - CONCLUSION: No pneumothorax following thoracentesis. Attila Herman Jr., MD Chest CT 11/18/17 0000 Signed Impressions: Service Date/Time: Saturday, November 18, 2017 13:13 - CONCLUSION: Small to moderate right pleural effusion with t compressive atelectasis in the right base. Sam Villar MD FACR Objective Remarks General: Obese male in no acute distress. Heart: Regular rate and rhythm. No murmur. Lungs: Decreased breath sounds on the right. Breathing is nonlabored. Abdomen: Soft, nontender, nondistended. Extremities: No lower extremity edema. Psych: Alert and oriented. Procedures 11/19/17 thoracentesis Urinary Catheter: No Vascular Central Line Catheter: No A/P Problem List: (1) Acute respiratory failure with hypoxia ICD Code: J96.01 - Acute respiratory failure with hypoxia (2) Pleural effusion, right ICD Code: J90 - Pleural effusion, not elsewhere classified (3) CHF (congestive heart failure) ICD Code: I50.9 - Heart failure, unspecified (4) Bronchitis ICD Code: J40 - Bronchitis, not specified as acute or chronic Assessment and Plan 1. Acute respiratory failure with hypoxia, right-sided pleural effusion: Continue DuoNeb, supplemental oxygen as needed, Symbicort, steroids. Chest CT showed right-sided pleural effusion with compressive atelectasis. Incentive spirometry. Status post thoracentesis with removal of 1500 cc of red fluid. Pulmonology consult is pending. Cultures and cytology are pending. Patient reports recent fall, landing on his back, which may be the cause of the bloody pleural effusion. H/H are stable. 2. Hypertension: Continue nifedipine, Lasix. 3. Acute diastolic CHF: 2D echocardiogram noted. Continue Lasix. 4. DVT prophylaxis: Lovenox. Discharge Planning Plan for discharge home when cleared by pulmonology. Thanh Leblanc MD Nov 20, 2017 13:44
[2017-11-20] MEDS ORDERED: FURO1TAB62 PO (13:47)
[2017-11-20] MEDS ORDERED: PRED5PAK PO (13:47)
[2017-11-20] MEDS: LEVOFLOXACIN 750 MG TAB PO SCH (16:52)
[2017-11-20] MEDS: FUROSEMIDE 20 MG TAB PO SCH (16:54)
--- NOTE | 2017-11-20 17:07 | MB ---
cc: Layne Tillman MD DATE OF CONSULT: 11/20/2017 [facility] FOR CONSULTATION: Pleural effusion. HISTORY OF PRESENT ILLNESS: The patient is a 52-year-old male who was admitted with cough, shortness of breath and chest wheeze. Had had a URI for several days prior to his hospitalization, was given antibiotic therapy as an outpatient without improvement. The patient denies history of fever or chills. A chest x-ray was with a right pleural effusion. A thoracentesis was done. Amount of fluid removed is unclear to me. However, the fluid is bloody exudate. Apparently, the patient had fallen and hurt his back several days prior to admission as well. Cultures have been negative. Cytology is pending. PAST MEDICAL HISTORY: Diastolic heart failure, hypertension, gout and hyperlipidemia. PAST SURGICAL HISTORY: He had hernia repair and a pacemaker placed in the past, as well as ankle surgery. ALLERGIES: NONE KNOWN TO MEDICATION. FAMILY HISTORY: Noncontributory. SOCIAL HISTORY: Does not smoke, does not use drugs, drinks 2-3 beers a day. CURRENT MEDICATIONS: Include prednisone 20 mg twice a day, Levaquin, albuterol, Lexapro, Procardia, budesonide/formoterol nebulizer treatments. REVIEW OF SYSTEMS: A 12-point review of systems as per HPI and past history, otherwise negative. PHYSICAL EXAMINATION: GENERAL: The patient is alert. VITAL SIGNS: Temperature 98, pulse 80, respirations 18, blood pressure 140/70. HEENT: Unremarkable. Eyes without icterus. NECK: Without adenopathy or thyroid enlargement, central trachea. CHEST: Decreased breath sounds right base. CARDIAC: PMI not appreciated. S1, S2 audible. No murmur, no rub. ABDOMEN: Lax. Audible bowel sounds. EXTREMITIES: No clubbing, cyanosis or edema. LABORATORY STUDIES: White count 9.7, hemoglobin 12.3, hematocrit 35. INR 1.1. Sodium 131, potassium 3.7, BUN 16, creatinine 0.7. IMPRESSION: 1, Right pleural effusion, post thoracentesis, doing well. 2. Chest wheeze and congestion due to upper respiratory tract infection. Possible underlying asthma. 3. Diastolic congestive heart failure. 4. Mood disorder. Patient on nebulized therapy as he could not follow instructions to use an inhaler. PLAN: Patient will continue antibiotic therapy, nebulization treatments. We will attempt to obtain pulmonary function, as well as arterial blood gas and depending on findings and patient's progress, proceed accordingly. I do thank you for asking me to partake in Mr. Guerrero's care. MD GARY Frye/ALEX , 04:40 PM , 05:05 PM
[2017-11-20] MEDS: predniSONE 20 MG TAB PO SCH (22:06)
[2017-11-21] VITALS: BP 160/74; PULSE 70; RESP 18; TEMP 98.2; O2SAT 92
[2017-11-21 04:00] VITALS: BP 145/70; PULSE 66; RESP 20; TEMP 98; O2SAT 94
[2017-11-21 08:00] VITALS: BP 161/77; PULSE 74; RESP 22; TEMP 98.1; O2SAT 92
[2017-11-21] MEDS: RESP: ALBUTEROL 2.5 MG/IPRATROPIUM 0.5 MG NEB (SCH) NEB (08:17)
[2017-11-21] MEDS: DOCUSATE SODIUM 50 MG/SENNA 8.6 MG TAB PO SCH (09:00)
[2017-11-21] MEDS: SODIUM CHLORIDE 0.9% FLUSH 10 ML FLUSH IV FLUSH SCH (09:08)
[2017-11-21] MEDS: FUROSEMIDE 20 MG TAB PO SCH (09:08)
[2017-11-21] MEDS: guaiFENesin E.R. 600 MG TAB PO SCH (09:09)
[2017-11-21] MEDS: ESCITALOPRAM OXALATE 10 MG TAB PO SCH (09:09)
[2017-11-21] MEDS: predniSONE 20 MG TAB PO SCH (09:09)
[2017-11-21] MEDS: ASPIRIN EC 81 MG TABEC PO SCH (09:09)
[2017-11-21] MEDS: BUDESONIDE-FORMOTEROL 160/4.5 MCG INHALER INH SCH (09:10)
[2017-11-21] MEDS: NIFEdipine 60 MG SUSTAINED RELEASE TAB PO SCH (09:10)
[2017-11-21] MEDS: ALLOPURINOL 300 MG TAB PO SCH (09:20)
--- NOTE | 2017-11-21 10:36 | HHI.DCPOC ---
Discharge Care Plan Diagnosis: (1) Acute respiratory failure with hypoxia (2) Pleural effusion, right (3) Bronchitis Goals to Promote Your Health * To prevent worsening of your condition and complications * To maintain your health at the optimal level Directions to Meet Your Goals Take your medications as prescribed Follow your dietary instruction Follow activity as directed Keep your appointments as scheduled Take your immunizations and boosters as scheduled If your symptoms worsen call your PCP, if no PCP go to Urgent Care Center or Emergency Room Smoking is Dangerous to Your Health. Avoid second hand smoke Call the 24-hour hour crisis hotline for domestic abuse at Thanh Leblanc MD Nov 21, 2017 10:36
[2017-11-21] MEDS ORDERED: POTA-163 PO (10:45)
[2017-11-21] MEDS ORDERED: POTASSIUM CHLORIDE 20 MEQ CONTROLLED RELEASE TAB PO SCH (10:45)
--- NOTE | 2017-11-21 10:46 | HHI.DS ---
Discharge Summary Admission Date Nov 17, 2017 at 17:25 Discharge Date: Nov 21, 2017 Admitting Diagnosis Acute CHF with hypoxia (1) Acute respiratory failure with hypoxia ICD Code: J96.01 - Acute respiratory failure with hypoxia (2) Pleural effusion, right ICD Code: J90 - Pleural effusion, not elsewhere classified (3) CHF (congestive heart failure) ICD Code: I50.9 - Heart failure, unspecified (4) Bronchitis ICD Code: J40 - Bronchitis, not specified as acute or chronic Procedures 11/19/17 thoracentesis Brief History - From Admission This is a 52-year-old male with PMH of HTN, CHF (Echo 07/18/16 w/ EF 55%), Gout and Hyperlipidemia who was referred to the ER by Urgent Care secondary to cough , wheezing and SOB. States he's had non-productive cough, SOB and wheezing for approx 3wks. Was seen at Urgent Care at time of onset and given Z-Jose which he completed. Seen by PCP last week w/ ongoing symptoms and started on Doxycycline 100mg bid in addition to Albuterol MDI. Reports minimal improvement. Significant SOB w/ exertion, also notes worsening lower extremity edema. Follows w/ Dr. Quintanilla as outpatient, no recent changes to medications. On arrival, BP 184/84, HR 83, O2 sat 88% on RA, Afebrile. CBC unremarkable except for elevated neutrophil count. Troponin negative. BNP 160. INR 1.1. CXR with increased density right lung base likely elevation of diaphragm atelectasis and possible effusion. S/p Lasix and DuoNeb in ER. CBC/BMP: 11/20/17 0527 11/20/17 0527 Significant Findings Laboratory Tests Test 11/19/17 09:03 11/20/17 05:27 Pleural Fluid WBC 512 /MM3 (0-10) Pleural Fluid RBC [id number] /MM3 (0-0) Red Blood Count 3.20 MIL/MM3 (4.50-5.90) Hemoglobin 12.3 GM/DL (13.0-17.0) Hematocrit 35.3 % (39.0-51.0) Mean Corpuscular Volume 110.5 FL (80.0-100.0) Mean Corpuscular Hemoglobin 38.4 PG (27.0-34.0) Platelet Count 119 TH/MM3 (150-450) Neutrophils (%) (Auto) 89.8 % (16.0-70.0) Lymphocytes (%) (Auto) 6.2 % (9.0-44.0) Neutrophils # (Auto) 8.7 TH/MM3 (1.8-7.7) Lymphocytes # (Auto) 0.6 TH/MM3 (1.0-4.8) Random Glucose 183 MG/DL (74-106) Calcium Level 8.0 MG/DL (8.5-10.1) Sodium Level 131 MEQ/L (136-145) Chloride Level 92 MEQ/L (98-107) Carbon Dioxide Level 32.8 MEQ/L (21.0-32.0) Imaging Last Impressions Thoracentesis Ultrasound 11/19/17 0000 Signed Impressions: Service Date/Time: Sunday, November 19, 2017 07:56 - CONCLUSION: Uncomplicated ultrasound guided thoracentesis. Dandy Perry MD Chest X-Ray 11/19/17 0000 Signed Impressions: Service Date/Time: Sunday, November 19, 2017 09:21 - CONCLUSION: No pneumothorax following thoracentesis. Attila Herman Jr., MD Chest CT 11/18/17 0000 Signed Impressions: Service Date/Time: Saturday, November 18, 2017 13:13 - CONCLUSION: Small to moderate right pleural effusion with t compressive atelectasis in the right base. Sam Villar MD FACR PE at Discharge General: Obese male in no acute distress. Heart: Regular rate and rhythm. No murmur. Lungs: Decreased breath sounds on the right. Breathing is nonlabored. Abdomen: Soft, nontender, nondistended. Extremities: No lower extremity edema. Psych: Alert and oriented. Pt update on day of discharge The patient states that he feels good today. He does have a cough, but no shortness of breath or chest pain. He wants to go home today. I spoke with Dr. Tillman, who cleared the patient for discharge from pulmonology standpoint. Hospital Course The patient was admitted for treatment of hypoxia, shortness of breath. He was continued on diuresis for exacerbation of CHF. He was continued on steroids, bronchodilators for bronchitis. He was noted to have a large pleural effusion. Thoracentesis was done with removal of bloody fluid. Pulmonology was consulted. The patient was weaned off oxygen. Steroids were tapered. The patient was cleared for discharge by pulmonology. He was felt to be stable for discharge home. Pt Condition on Discharge: Stable Discharge Disposition: Discharge Home Discharge Time: > 30 minutes Discharge Instructions DIET: Follow Instructions for: Heart Healthy Diet Activities you can perform: Regular-No Restrictions Follow up Referrals: PCP Follow-up - 1 Week Pulmonology - 2 Weeks with Layne Tillman MD New Orders: X-RAY CHEST PA & LAT - 2 Weeks New Medications: Furosemide (Lasix) 20 Mg Tab 20 MG PO BID for Diuretic, #60 TAB 0 Refills Potassium Chloride ER (Potassium Chloride ER) 20 Meq Tab 20 MEQ PO DAILY for Electrolyte Replacement, #30 TAB 0 Refills Prednisone (21) 5 mg tab Dose Pack (Prednisone (21) 5 mg tab Dose Pack) 5 Mg Dspk 5 MG PO DIRECTED for Inflammation, #1 DSPK 0 Refills Continued Medications: Albuterol 18 GM Inh (Ventolin Hfa 18 GM Inh) 90 Mcg/Act Aer 2 PUFF INH Q4-6H PRN for SHORTNESS OF BREATH, #1 INHALER 0 Refills Allopurinol (Allopurinol) 300 Mg Tab 300 MG PO DAILY for Gout, #30 TAB 0 Refills Amlodipine-Benazepril (Lotrel) 10-40 Mg Cap 1 CAP PO DAILY for Blood Pressure Management, #30 CAP [address] (Aspir-81) 81 Mg Tabdr 1 TAB PO DAILY Escitalopram (Escitalopram) 10 Mg Tab 10 MG PO DAILY, #30 TAB 0 Refills Discontinued Medications: Furosemide (Lasix) 20 Mg Tab 20 MG PO DAILY, #30 TAB 0 Refills Thanh Leblanc MD Nov 21, 2017 10:46
[2017-11-21 12:00] VITALS: BP 169/81; PULSE 71; RESP 22; TEMP 98.1; O2SAT 94
== END 2017-11-21 13:08 | disposition home or self-care (01) | DRG 291 ==
LOC: NEPC 14:56 → NEDA 17:25 → N04B 19:40
PROVIDERS: ADMIT Family Medicine; ATTEND Family Medicine
PROC: 0W993ZZ Drainage of Right Pleural Cavity, Percutaneous Approach (ICD-10-PCS; principal; 2017-11-19)
DX: I11.0 Hypertensive heart disease with heart failure (principal); J96.01 Acute respiratory failure with hypoxia; Z68.41 Body mass index [BMI] 40.0-44.9, adult; J98.11 Atelectasis; I50.33 Acute on chronic diastolic (congestive) heart failure; J02.9 Acute pharyngitis, unspecified; J40 Bronchitis, not specified as acute or chronic; E66.9 Obesity, unspecified; M10.9 Gout, unspecified; F39 Unspecified mood [affective] disorder; Z95.0 Presence of cardiac pacemaker
CPT/HCPCS: 32555; 71045; 71046; 71250; 80048; 80053; 81001; 82550; 82945; 83615; 83735; 83880; 83986; 84157; 84484; 85025; 85610; 85730; 87015; 87070; 87102; 87116; 87205; 87206; 88112; 88305; 89051; 93005; 93308; 94150; 94640; 94664; 96374; 96375; C1729; J1650; J1940; J1956; J2920; J7512

== ENCOUNTER → 2017-12-18 | Outpatient (CLI) | payer OTHER ==
[~2017-12-18] MED LIST changes: -HYDR10TA23 PO; -LEVA500T PO; +POTA-163 PO; +PRED5PAK PO; +VENTAER INH
--- NOTE | 2017-12-18 09:57 | RADRPT ---
EXAM DATE/TIME: 12/18/2017 09:11 [facility] COMPARISON: CHEST PA & LAT, November 17, 2017, 15:52. INDICATIONS : Short of breath. MEDICAL HISTORY : Hypertension. Congestive heart failure. Hiatal hernia. Hypertension. Gout.Irregular heart beat. SURGICAL HISTORY : Pacemaker. ENCOUNTER: Subsequent ACUITY: 1 day PAIN SCORE: 0/10 LOCATION: Bilateral chest FINDINGS: PA and lateral views of the chest demonstrate the lungs to be symmetrically aerated without evidence of mass, infiltrate or effusion. The cardiomediastinal contours are unremarkable. Osseous structure s are intact. Cardiac pacer leads are stable. CONCLUSION: The lungs are clear. Attila Cisneros MD on December 18, 2017 at 9:53 Board Certified Radiologist. This report was verified electronically.
--- NOTE | 2017-12-23 10:01 | RSPPFT ---
DATE OF PROCEDURE: 12/18/17 COMMENTS: Spirometry with FVC of 1.7, FEV1 of 1.3, FEV1/FVC ratio at 78%. Lung volumes were not performed. Diffusion capacity is 68% of predicted and normal when corrected for alveolar volume. Room air arterial blood gases show pH of 7.38, PCO2 of 53, PO2 of 70. Marked reduction in flow rates. No gross airways obstruction however, element of airways obstruction is evident in the post-bronchodilator study. IMPRESSION: 1. Moderately severe airways obstruction. 2. Hypercapnia with adequate oxygenation. 3. Positive and significant response to inhaled bronchodilator.
== END ==
LOC: HRSP 07:58
PROVIDERS: ATTEND Internal Medicine Sleep Medicine
DX: R06.89 Other abnormalities of breathing (principal); R06.09 Other forms of dyspnea
CPT/HCPCS: 36600; 71046; 82805; 94060; 94726; 94729